=== PATIENT | male | born 1965 | race Two or more races ===

== ENCOUNTER 2018-03-11 12:16 | Day surgery (SDC) | payer BC ==
[2018-03-11] MEDS ORDERED: PROPOFOL 40 ML (18:43)
== END 2018-03-11 19:41 | disposition home or self-care (01) ==
LOC: GIL 12:16
DX: Z12.11 Encounter for screening for malignant neoplasm of colon (principal); K62.1 Rectal polyp; K26.9 Duodenal ulcer, unspecified as acute or chronic, without hemorrhage or perforation; F17.200 Nicotine dependence, unspecified, uncomplicated
CPT/HCPCS: 43239; 88305; 88312

== ENCOUNTER 2018-06-01 19:49 | Emergency (ER) | payer BC ==
[2018-06-01] MEDS: LIDOCAINE 1% (MDV) 10 ML INJ INJ (21:27)
[2018-06-01] MEDS ORDERED: LIDOCAINE 1% (MPF) 30 ML INJ INJ (21:30)
== END 2018-06-01 21:53 | disposition home or self-care (01) ==
LOC: FTE 19:49
DX: L02.01 Cutaneous abscess of face (principal); Z79.82 Long term (current) use of aspirin; Z87.891 Personal history of nicotine dependence
CPT/HCPCS: 10060; 99283-25

== ENCOUNTER 2018-06-03 10:27 | Day surgery (SDC) | payer BC ==
[2018-06-03] MEDS: SOD CHLORIDE 0.9% 1,000 ML IV (12:04)
[2018-06-03] MEDS ORDERED: LIDOCAINE 1% (MDV) 20 ML INJ (12:09)
[2018-06-03] MEDS ORDERED: MIDAZOLAM 1 MG/ML 2 ML INJ (12:09)
[2018-06-03] MEDS ORDERED: HEPARIN 1000 UNITS/ML 10 ML INJ (12:09)
[2018-06-03] MEDS ORDERED: FENTAnyl 50 MCG/ML VIAL (12:10)
[2018-06-03] MEDS ORDERED: IODIXANOL LOCM 100 ML BTL (12:10)
[2018-06-03] MEDS ORDERED: ONDANSETRON 4 MG INJ IV (12:30)
[2018-06-03] MEDS ORDERED: ACETAMINOPHEN 325 MG TAB PO (12:30)
== END 2018-06-03 18:57 | disposition home or self-care (01) ==
LOC: CCL 10:27 → SDS 10:27 → CCL 18:57
DX: I70.213 Atherosclerosis of native arteries of extremities with intermittent claudication, bilateral legs (principal); F17.200 Nicotine dependence, unspecified, uncomplicated
CPT/HCPCS: 36200

== ENCOUNTER 2018-07-01 10:36 | Day surgery (SDC) | payer BC ==
[2018-07-01 11:36] LABS: ADD MAN DIFF? NO
[2018-07-01 11:40] LABS: WHITE BLOOD COUNT 6.5 10^3/ul (4.8-10.8)
[2018-07-01 11:40] LABS: BASOPHIL # 0.1 10^3/ul (0.0-0.1); BASOPHILS % 0.9 % (0.0-2.0); EOSINOPHILS # 0.3 10^3/ul (0.0-0.5); EOSINOPHILS % 4.3 % (0.0-7.0); HEMATOCRIT 47.6 % (42.0-52.0); LYMPHOCYTES # 2.1 10^3/ul (0.8-2.9); LYMPHOCYTES % 32.5 % (15.0-51.0); MEAN CORPUSCULAR HEMOGLOBIN 32.7 pg (29.0-33.0); MEAN CORPUSCULAR HGB CONC 33.6 g/dl (32.0-37.0); MEAN CORPUSCULAR VOLUME 97.3 fl (82.0-101.0); MEAN PLATELET VOLUME 9.9 fl (7.4-10.4); MONOCYTE # 0.6 10^3/ul (0.3-0.9); MONOCYTES % 8.8 % (0.0-11.0); NEUTROPHIL # 3.5 10^3/ul (1.6-7.5); NEUTROPHILS % 53.2 % (39.0-77.0); PLATELET COUNT 231 10^3/UL (140-415); RED BLOOD COUNT 4.89 10^6/ul (4.70-6.10); RED CELL DISTRIBUTION WIDTH 13.8 % (11.5-14.5)
[2018-07-01 11:59] LABS: INR 0.81; PROTIME 11.2 Sec (11.9-14.9); PT RATIO 0.9
[2018-07-01 12:00] LABS: PARTIAL THROMBOPLASTIN TIME 32.5 Sec (23.0-35.0)
[2018-07-01 12:06] LABS: ALANINE AMINOTRANSFERASE 29 IU/L (13-69); ALBUMIN 3.8 g/dl (3.3-4.9); ALBUMIN/GLOBULIN RATIO 1.15; ALKALINE PHOSPHATASE 71 IU/L (42-121); ANION GAP 8 (8-16); ASPARTATE AMINO TRANSFERASE 27 IU/L (15-46); BILIRUBIN,INDIRECT 0.2 mg/dl (0-1.1); BILIRUBIN,TOTAL 0.2 mg/dl (0.2-1.3); BLOOD UREA NITROGEN 17 mg/dl (7-20); CALCIUM 9.8 mg/dl (8.4-10.2); CARBON DIOXIDE 29 mmol/L (21-31); CHLORIDE 107 mmol/L (97-110); CREATININE 0.87 mg/dl (0.61-1.24); GLUCOSE 95 mg/dl (70-220); POTASSIUM 4.3 mmol/L (3.5-5.1); SODIUM 140 mmol/L (135-144); TOTAL PROTEIN 7.1 g/dl (6.1-8.1)
== END 2018-07-01 12:24 | disposition home or self-care (01) ==
LOC: SDS 10:36
DX: I73.9 Peripheral vascular disease, unspecified (principal); Z53.8 Procedure and treatment not carried out for other reasons; E78.5 Hyperlipidemia, unspecified; I10 Essential (primary) hypertension; I25.10 Atherosclerotic heart disease of native coronary artery without angina pectoris
CPT/HCPCS: 80053; 85025; 85610; 85730

== ENCOUNTER 2019-05-24 08:47 | Emergency (ER) | payer BC ==
[2019-05-24] MEDS: DIPHENHYDRAMINE 25 MG CAP PO (09:34)
[2019-05-24] MEDS: FAMOTIDINE 20 MG TAB PO (09:34)
[2019-05-24] MEDS: predniSONE 20 MG TAB PO (09:34)
== END 2019-05-24 09:40 | disposition home or self-care (01) ==
LOC: FTE 08:47
DX: T14.8XXA Other injury of unspecified body region, initial encounter (principal); F17.210 Nicotine dependence, cigarettes, uncomplicated; W57.XXXA Bitten or stung by nonvenomous insect and other nonvenomous arthropods, initial encounter; Y92.9 Unspecified place or not applicable; Z79.82 Long term (current) use of aspirin
CPT/HCPCS: 99283; J7512